=== PATIENT | male | born 1970 ===

== ENCOUNTER 2017-01-10 06:16 | Day surgery (SDC) | payer MEDICAID ==
[2016-04-28 20:51] VITALS: BMI 26.9
[2017-01-10] MEDS ORDERED: Lidocaine 2% Inj (20ml) ONE (06:23)
[2017-01-10] MEDS ORDERED: Iodixanol 320 MG/ML 100 ML BOTTLE IV ONE (06:24)
[2017-01-10] MEDS ORDERED: Atropine 0.4 mg/ml Inj (1 mL) ONE (06:24)
[2017-01-10] MEDS ORDERED: Nitroglycerin 50mg in D5W 0 MG/0 ML BOTTLE IV ONE (06:24)
[2017-01-10] MEDS ORDERED: Phenylephrine 10 mg/ml Inj ONE (06:24)
[2017-01-10] MEDS ORDERED: Iohexol 350mgl/ml 50 ML ONE (06:24)
[2017-01-10] MEDS ORDERED: Iodixanol 320 MG/ML 200 ML BOTTLE IV ONE (06:24)
[2017-01-10 07:01] LABS: ADD MANUAL DIFF? NO
[2017-01-10 07:12] LABS: BASO # 0.01 K/mm3 (0.0-2.0); BASO % 0.3 % (0.0-3.0); EOS # 0.5 (0.0-0.7); EOS % 12.6 % (1.5-5.0); GRAN # 1.94 (1.4-6.5); GRAN % 50.8 % (50.0-68.0); LYMPH % 26.4 % (22.0-35.0); MEAN CELL VOLUME 96.8 fL (80.0-105.0); MEAN CORPUSCULAR HGB CONC 34.1 g/dl (31.0-37.0); MEAN PLATELET VOLUME 11.3 fl (7.0-11.0); MONO # 0.4 (0.1-0.6); MONO % 9.9 % (1.0-6.0); PLATELET COUNT 202 10^3/uL (120.0-450.0); RED CELL DISTRIBUTION WIDTH 13.2 % (11.5-14.5); WHITE BLOOD COUNT 3.8 10^3/ul (4.5-11.0)
[2017-01-10 07:15] LABS: BLOOD UREA NITROGEN 15 mg/dL (7-21); CALCIUM 9.7 mg/dL (8.4-10.5); CARBON DIOXIDE 31 mmol/L (21-33); CHLORIDE 103 mmol/L (98-107); GFR AFRICAN-AMERICAN > 60; GLUCOSE,RANDOM 90 mg/dL (70-110); POTASSIUM 4.8 mmol/L (3.6-5.0); SODIUM 140 mmol/L (132-148)
[2017-01-10 07:18] LABS: INR 1.35 (0.93-1.08); PARTIAL THROMBOPLASTIN TIME 29.9 Seconds (23.7-30.8)
[2017-01-10] MEDS ORDERED: Midazolam 2 MG/2 ML VIAL ONE ×2 (07:24→08:07)
[2017-01-10 07:59] VITALS: TEMP 98.7
[2017-01-10] MEDS ORDERED: Sodium Chloride 0.9% 1,000 ML IV SCH (09:00)
[2017-01-10 12:31] VITALS: RESP 16; O2SAT 98
--- NOTE | 2017-01-10 13:29 | CARDCATH ---
PROCEDURE DATE: 01/10/2017 HISTORY OF PRESENT ILLNESS: The patient is a 46-year-old male who underwent evaluation for preop abran arance for cholecystectomy. The patient's cardiac history is extensive, which included a history of aortic valve replacement as a child with a second procedure as a young adult. In addition, he has been followed for aortic dissection, which has been treated surgically as well as been followed with scans. His most recent CT scan shows no change in the appearance of his aorta. Because of an abnormal stress test, the patient was referred for cardiac catheterization. PROCEDURE: Left heart catheterization with coronary arteriography and supra-aortic valvular injectio n. The right femoral artery was cannulated with a 6-Kinyarwanda sheath. There were no complications. The findings on catheterization revealed an aortogram which revealed a distorted ascending aorta. Th ere was 1+ aortic insufficiency noted. The coronary arteries were visualized with nonselective injections, but were well visualized. The left main artery was a large vessel and was unremarkable. The LAD and diagonal vessels revealed intimal irregularities without significant stenosis. The circumflex artery was a dominant vessel and found to have intimal irregularities without signific ant stenosis. The RCA, which was a nondominant vessel, was not visualized. No LV gram was performed. However, ejection fraction from his nuclear stress test was normal. Angio-Seal was used to close the femoral artery site. The patient tolerated the procedure well. SUMMARY: The procedure revealed unremarkable coronary arteries, 1+ aortic insufficiency, a dilated a scending aorta and status post aortic valve replacement as well as aorta repair. Given these findings, the patient's cardiac status is stable for his planned elective cholecystectomy . Chuy Tineo MD cc: [id number] TT: 01/10/2017 13:28:52 en
[2017-01-10 13:41] VITALS: BP 123/74; PULSE 64
--- NOTE | 2017-01-10 14:54 | CARD ---
APPROVED REPORT EKG Measurement Heart [id number] <Conclusion> Normal sinus rhythm PRWP V 1 - 5, possible lead placement
== END 2017-01-10 14:45 | disposition home or self-care (01) ==
LOC: CATH 06:16
PROVIDERS: ATTEND Internal Medicine Cardiovascular Disease
DX: I35.1 Nonrheumatic aortic (valve) insufficiency (principal); I10 Essential (primary) hypertension; I77.810 Thoracic aortic ectasia; Z95.2 Presence of prosthetic heart valve
CPT/HCPCS: 36415; 80048; 85025; 85610; 85730; 86850; 86900; 93005; 93454; 93567; 99152; C1760; C1769 ×2; C2629; J1644; J2250; J3010; J7040; Q9967